=== PATIENT | male | born 1950 | race Caucasian/White ===

== ENCOUNTER → 2023-05-11 | Outpatient (CLI) | payer MEDICARE, SELFPAY ==
--- NOTE | 2023-05-11 09:03 | MRI_ITS ---
STUDY: MRI BRAIN WITH AND WITHOUT CONTRAST (ATTENTION INTERNAL AUDITORY CANALS - I.A.C.''s) REASON FOR EXAM: Male, 73 years old. Bilateral acoustic neuromas -- with attention to the IACs TECHNIQUE: Standardized multiplanar fat and water weighted pulse sequences were obtained. IV 19 CC Clariscan was administered for the contrast portion of the examination. COMPARISON: None. FINDINGS: Normal bilateral temporal bones. Normal bilateral internal auditory canals. There is an enhancing intracanalicular mass inside the left internal auditory canal consistent with vestibular schwannoma. This measures approximately 1 x 0.4 cm and is unchanged. Normal right internal auditory canal. There is no enhancement of the right VIIth or VIIIth cranial nerves. Abnormal contrast enhancement of the basal turn of the right cochlea suggestive of cochlear schwannoma. This was also present previously. Normal size of the ventricles and extra-axial spaces for the patient''s age. Normal white matter tracts of the supratentorial brain. Normal bilateral basal ganglia. Normal thalami. Normal flow voids within the major intracranial circulation suggesting patency by spin echo criteria. Normal venous enhancement. There is no enhancing intra-axial or extra-axial abnormality. There is no extra-axial fluid accumulation. Normal sella turcica, pituitary gland, infundibular stalk, optic chiasm and hypothalamus. Normal tectal plate and pineal gland. Normal midbrain, brayden and medulla. Normal cerebellum. Normal basal cisterns. No demonstrated orbital abnormality, within the constraints of a routine brain study. Normal visualized paranasal sinuses. Normal calvarium and skull base. Normal visualized soft tissue structures. Normal visualized upper cervical spine. 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 Unfortunately 1 mm postcontrast 3-D volume imaging was not acquired making direct comparison difficult with the previous 1 mm 3-D volume postcontrast acquisition. There is also abnormal contrast enhancement at the basal turn of the right cochlea suggestive of cochlear schwannoma. In my opinion, these are unchanged in size and configuration. No new findings or changes when compared to 11/17/2022. Electronically Signed: Terry Bullard MD at 11:55 EST ,
[2023-05-11 10:20] LABS: CREATININE FINGERSTICK < 1.0 mg/dL (0.70-1.30); EGFR FINGERSTICK > 60.0000 mL/min (>60)
== END | disposition home or self-care (01) ==
PROVIDERS: PCP Physician Assistant Medical; Referring Provider Psychiatry & Neurology Neurology; Visit Provider Psychiatry & Neurology Neurology
DX: D33.3 Benign neoplasm of cranial nerves (principal)
CPT/HCPCS: 70553; A9575

== ENCOUNTER → 2025-02-28 | Outpatient (CLI) | payer MEDICARE, SELFPAY ==
--- NOTE | 2025-02-28 09:34 | MRI_ITS ---
PROCEDURE: BRAIN W/WO CONTRAST 02/28/2025 REASON FOR EXAM: BILATERAL ACOUSTIC NEUROMAS FOLLOW-UP TECHNIQUE: Procedure Code: [id number] Modality: MR Procedure: BRAIN W/WO CONTRAST Multiplanar and multisequence images were obtained. CONTRAST: VOLUME: mL COMPARISON: None. FINDINGS: An oval enhancing lesion is noted within the left internal auditory canal, measuring 5 x 9 x 5 mm pain consistent with a vestibular schwannoma (acoustic neuroma). The left cerebellar pontine angle appears unremarkable. The right internal auditory canal and right cerebellar pontine angle appear unremarkable. A few punctate FLAIR hyperintense foci are noted within the bilateral cerebral white matter, nonspecific but probably represent minimal chronic microvascular ischemic change. The remainder of the brain parenchyma appears unremarkable. The marlow-white matter differentiation is appropriate. The ventricles are normal in size and configuration. No midline shift. The midline structures are intact, specifically the corpus callosum, septum pellucidum, pituitary gland, and cerebellar vermis. The cervicomedullary junction appears unremarkable. The paranasal sinuses and mastoid air cells are clear. Diffusion-weighted images demonstrate no restricted diffusion. MRI/Brain W/WO Contrast IMPRESSION: 1. Oval 9 mm enhancing lesion in the left internal auditory canal consistent w ith a vestibular schwannoma. 2. The right internal auditory canal and right CP angle appear unremarkable. Reading Location: [id number]
== END | disposition home or self-care (01) ==
LOC: OPMRI 09:32
PROVIDERS: PCP Physician Assistant Medical; Referring Provider Psychiatry & Neurology Neurology; Visit Provider Psychiatry & Neurology Neurology
DX: D33.3 Benign neoplasm of cranial nerves (principal)
CPT/HCPCS: 70553; A9575